=== PATIENT | male | born 1945 | race Hispanic/Latino ===

== ENCOUNTER 2022-08-25 16:07 | Emergency (ER) | payer OTHER ==
[~2022-08-25] VITALS: Ht 167.6 cm; Wt 80.3 kg
[2022-08-25] MEDS: KETOROLAC 15MG/ML VIAL (15MG/ML) IM ONE (17:08)
[2022-08-25] MEDS ORDERED: KETO10TA2 PO (17:10)
[2022-08-25 17:41] VITALS: BP 153/91
== END 2022-08-25 17:44 | disposition home or self-care (01) ==
LOC: EDH 16:07
DX: M54.41 Lumbago with sciatica, right side (principal); E78.00 Pure hypercholesterolemia, unspecified; I10 Essential (primary) hypertension; Z98.890 Other specified postprocedural states
CPT/HCPCS: 99283; 96372; J1885

== ENCOUNTER 2024-12-19 20:28 | Emergency (ER) | payer OTHER ==
[~2024-12-19] VITALS: Ht 167.6 cm; Wt 78.5 kg
[~2024-12-19 20:28] MED LIST: KETO10TA2 PO
[2024-12-19 20:30] VITALS: TEMP 98
--- NOTE | 2024-12-19 20:46 | EKG ---
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
[2024-12-19 21:10] LABS: BASOPHILS # (AUTO) 0.01 K/uL (0.00-0.20); BASOPHILS % (AUTO) 0.2 % (0.0-5.0); EOSINOPHILS # (AUTO) 0.08 K/uL (0.00-0.70); EOSINOPHILS % (AUTO) 1.5 % (0.0-8.0); HEMATOCRIT 43.1 % (42-54); IMMATURE GRANULOCYTE ABSOLUTE 0.02 K/uL (0-1); LYMPHOCYTES # (AUTO) 1.1 K/uL (1.0-4.8); LYMPHOCYTES % (AUTO) 21.2 % (21.0-51.0); MEAN CORPUSCULAR HEMOGLOBIN 26.7 pg (27.0-33.0); MEAN CORPUSCULAR HGB CONC 31.8 g/dL (32.0-36.0); MONOCYTES # (AUTO) 0.6 K/uL (0.1-1.0); MONOCYTES % (AUTO) 11.4 % (3.0-13.0); NEUTROPHILS # (AUTO) 3.4 K/uL (1.8-7.7); NEUTROPHILS % (AUTO) 65.3 % (40.0-77.0); PLATELET COUNT (AUTO) 211 K/uL (130-400); RED BLOOD CELL COUNT(AUTO) 5.13 MIL/uL (4.50-6.20); RED CELL DISTRIBUTION WIDTH 14.2 % (11.0-15.5); WHITE BLOOD COUNT (AUTO) 5.2 K/uL (4.8-10.8)
[2024-12-19 21:25] LABS: APPEARANCE,URINE CLEAR (CLEAR); BILIRUBIN,URINE NEGATIVE (NEGATIVE); COLOR,URINE LIGHT-YELLOW (YELLOW); GLUCOSE, URINE (UA) NEGATIVE (NEGATIVE); KETONES,URINE NEGATIVE (NEGATIVE); LEUKOCYTE ESTERASE ,URINE NEGATIVE Leu/uL (NEGATIVE); NITRATE,URINE NEGATIVE (NEGATIVE); PROTEIN,URINE NEGATIVE (NEGATIVE); UROBILINOGEN,URINE 0.2 mg/dL (0.2-1.0)
[2024-12-19 21:28] LABS: ADD UA MICROSCOPIC YES
[2024-12-19 21:39] LABS: MUCUS,URINE RARE LPF (None Seen); RBC,URINE 0-1 /HPF (0-1); WBC,URINE 0-1 /HPF (0-1)
--- NOTE | 2024-12-19 21:39 | HMCIMG ---
CHEST 1VW HISTORY: Chest pain COMPARISON: None FINDINGS: A frontal projection of the chest was obtained. No acute pulmonary infiltrates is seen. The heart is borderline enlarged. Degenerative changes are seen. Aortic calcifications are seen. IMPRESSION: 1. No acute pulmonary infiltrate is seen.
[2024-12-19 21:42] LABS: CREATININE 1.5 mg/dL (0.5-1.3); POTASSIUM 5.2 mmol/L (3.5-5.1)
[2024-12-19 21:45] LABS: B-TYPE NATRIURETIC PEPTIDE 52 pg/mL (0-100)
--- NOTE | 2024-12-19 21:47 | ERN ---
ED Note History of Present Illness Stated Complaint: DIZZYNESS, HEADACHE Chief Complaint: Neck Pain Time Seen by MD: 20:59 Dictation: This is a 79-year-old male who presented to the emergency room with complaints of left-sided neck pain headache and dizziness. All this started today. Patient is a very poor historian Temperature 98 pulse 68 respirations 20 initial blood pressure was 165/126 with a repeat 168/90 and pulse oximetry of 97% on room air Chronic medical problems include hypertension hypercholesterolemia and history of prostate surgery Allergies: Coded Allergies: No Known Drug Allergies (Unverified Allergy, Unknown, 08/25/22) Home Meds Active Scripts Ketorolac Tromethamine (Ketorolac Tromethamine) 10 Mg Tablet, 10 MG PO every 6 hours for pain for 4 Days, #16 TAB Prov:ADRIANA HANSEN [employer] 08/25/22 Past Medical History Past Medical History: High Cholesterol, Hypertension Surgical History: Other Surgical History Other: PROSTATE REMOVAL Family History: Negative Social History: Negative RN Note Reviewed/Agreed w/PFSH: Yes Review of System Dictation Constitutional: Negative for fever,chills, and weight loss Eyes: Negative for injury, pain,redness, and discharge ENT: Negative for injury,pain or swelling Cardiovascular: Negative for chest pain, palpitations, and edema Respiratory: Negative for shortness of breath, cough, and wheezing, Abdomen/GI: Negative for abdominal pain, nausea, vomiting, diarrhea, and constipation Back: Negative for injury and pain : Negative for injury, bleeding and discharge MS/Extremity: Negative for injury and deformity Skin: Negative for rash, and discoloration Neuro: Negative for headache, weakness, numbness, tingling, and seizure Psych: Negative for suicide ideation, homicidal ideation, and hallucinations Initial Vital Sign VS Vital Signs Date Time Temp Pulse Resp B/P (MAP) Pulse Ox O2 Delivery O2 Flow Rate FiO2 12/19/24 20:30 98.1 68 20 165/126 97 Room Air 12/19/24 20:53 0 21 Physical Exam Dictation General: awake, alert, NAD Head/Face: Normocephalic, atraumatic Eyes: PERRL, EOMI, vision at baseline ENT: oral cavity clear, TMs clear, no signs of infection Neck: Trachea midline, supple, no nuchal rigidity Cardiovascular: RRR, normal S1/S2, No MRGs, no JVD Respiratory: CTAB, no respiratory distress, No rales or wheezes Abdomen: Soft, non-tender, non-distended, normal bowel sounds, no guarding or rebound. Skin: Warm, dry, normal turgor, no rash MS/Extremity: Pulses equal, no cyanosis, neurovascular intact, FROM Neuro: COAx4, GCS 15, strength 5/5, CN 2-12 intact, normal cerebellar exam, normal gait, Psych: Normal behavior, mood, and affect normal Extremities-trace edema without any palpable cords, Homans sign is negative Results (Laboratory/Radiology) Laboratory/Radiology Laboratory Tests Test 12/19/24 21:00 12/19/24 21:05 12/19/24 21:23 White Blood Count 5.2 K/uL (4.8-10.8) Red Blood Count 5.13 MIL/uL (4.50-6.20) Hemoglobin 13.7 g/dL (14.0-18.0) L Hematocrit 43.1 % (42-54) Mean Corpuscular Volume 84.0 fL (79-99) Mean Corpuscular Hemoglobin 26.7 pg (27.0-33.0) L Mean Corpuscular Hemoglobin Concent 31.8 g/dL (32.0-36.0) L Red Cell Distribution Width 14.2 % (11.0-15.5) Platelet Count 211 K/uL (130-400) Mean Platelet Volume 10.2 fL (7.5-10.5) Immature Granulocyte % (Auto) 0.4 % (0-1) Neutrophils (%) (Auto) 65.3 % (40.0-77.0) Lymphocytes (%) (Auto) 21.2 % (21.0-51.0) Monocytes (%) (Auto) 11.4 % (3.0-13.0) Eosinophils (%) (Auto) 1.5 % (0.0-8.0) Basophils (%) (Auto) 0.2 % (0.0-5.0) Neutrophils # (Auto) 3.4 K/uL (1.8-7.7) Lymphocytes # (Auto) 1.1 K/uL (1.0-4.8) Monocytes # (Auto) 0.6 K/uL (0.1-1.0) Eosinophils # (Auto) 0.08 K/uL (0.00-0.70) Basophils # (Auto) 0.01 K/uL (0.00-0.20) Absolute Immature Granulocyte (auto 0.02 K/uL (0-1) Nucleated Red Blood Cells 0.0 % (0.0-0.19) Sodium Level 139 mmol/L (136-145) Potassium Level 5.2 mmol/L (3.5-5.1) H Chloride Level 106 mmol/L (101-111) Carbon Dioxide Level 30 mmol/L (21-32) Blood Urea Nitrogen 24 mg/dL (7-18) H Creatinine 1.5 mg/dL (0.5-1.3) H Glomerular Filtration Rate Calc 47 mL/min (>90) Random Glucose 104 mg/dL (70-105) Total Calcium 8.3 mg/dL (8.5-10.1) L Total Creatine Kinase 157 U/L (21-232) Troponin I High Sensitivity 13 ng/L (4-75) B-Type Natriuretic Peptide 52 pg/mL (0-100) Urine Color LIGHT-YELLOW (YELLOW) Urine Appearance CLEAR (CLEAR) Urine pH 5.0 (5.0-8.0) Urine Specific Eden 1.017 (1.001-1.031) Urine Protein NEGATIVE mg/dL (NEGATIVE) Urine Glucose (UA) NEGATIVE mg/dL (NEGATIVE) Urine Ketones NEGATIVE mg/dL (NEGATIVE) Urine Occult Blood +- (TRACE) (NEGATIVE) H Urine Nitrate NEGATIVE (NEGATIVE) Urine Bilirubin NEGATIVE mg/dL (NEGATIVE) Urine Urobilinogen 0.2 mg/dL (0.2-1.0) Urine Leukocyte Esterase NEGATIVE Braydon/uL Urine RBC 0-1 /HPF (0-1) Urine WBC 0-1 /HPF (0-1) Urine Bacteria None /HPF (None Seen) Troponin I < 0.05 ng/mL (0.00-0.05) Labs Reviewed?: Yes CT Scan Comment: PATIENT: OLIVIA BURGOS MR#: [id number] : 1945 SEX: M AGE: 79 LOCATION: ED ORDER 0003 STATUS: REG ER REPORT#: [id number] SERVICE 0000 REASON: severe neck pain ORDERING PHYSICIAN: KEITH NICHOLS MD PROCEDURE: C SPIN WO - CT CERVICAL SPINE W/O CONTRAST CT CERVICAL SPINE W/O CONTRAST HISTORY: Neck pain COMPARISON: None TECHNIQUE: Multiple sequential axial images of the cervical spine were obtained including post processing sagittal and coronal reconstruction images. Patient was not given contrast through intravenous route. FINDINGS: There are degenerative changes with cervical spine spondylosis. Disc space narrowings are seen at C5-6 and C6-7 levels. There is straightening of normal lordotic cervical curvature which may be related to muscle spasm or positioning. There is no loss of vertebral height. Evaluation for disc and cord pathology is limited with CT study. No evidence of fracture or dislocation is seen. IMPRESSION: 1. No fracture is seen. DJD. CT was performed with one or more following dose reduction techniques: automated exposure control, adjustment of the mA and kv according to patient's size, or use of a iterative reconstruction technique. DICTATED BY: COLE ENRIQUEZ MD DATE: 12/20/24 005 ELECTRONICALLY SIGNED BY: COLE ENRIQUEZ MD DATE: 12/20/24 010 ED Course ED Course Orders Procedure Category Date Status Time Vital Signs Per CPOE 12/19/24 Transmitted Routine 20:40 B-Type Natriuretic LAB 12/19/24 Complete Peptide 20:40 Chest 1vw RAD 12/19/24 Resulted 20:40 12 Lead Ekg Tracing- EKG 12/19/24 Complete Technical 20:40 Oxygen By Nc/Pulse Ox CPOE 12/19/24 Transmitted 20:40 Maintain Iv CPOE 12/19/24 Transmitted 20:40 Iv Insertion CPOE 12/19/24 Transmitted 20:40 Cardiac Monitoring CPOE 12/19/24 Transmitted 20:40 Pulse Oximetry With CPOE 12/19/24 Transmitted Vs And Prn 20:40 Cbc With Differential LAB 12/19/24 Complete 20:40 Activity: Br W/Brp CPOE 12/19/24 Transmitted With Assist 20:40 Creatine Kinase, Total LAB 12/19/24 Complete 20:40 Troponin I High LAB 12/19/24 Complete Sensitivity 20:40 Urinalysis Profile LAB 12/19/24 Complete 20:40 Troponin Poc Order LAB 12/19/24 Complete Only 20:40 Bedside Troponin-I LAB.ER 12/19/24 In Process (Poc) 20:40 Basic Metabolic Panel LAB 12/19/24 Complete 20:40 Acetaminophen 325 Tab PHA 12/19/24 Complete (Tylenol 325mg Tab 21:30 0.9% Nacl 500ml PHA 12/19/24 Complete Iv.Soln (Ns 500ml 22:00 Morphine 2mg Syg PHA 12/19/24 Complete (Morphine 2mg Syg) 22:00 Cyclobenzaprine Hcl PHA 12/19/24 Complete (Cyclobenzaprine Hcl 22:00 Ct Cervical Spine W/O CT 12/20/24 Resulted Contrast 00:00 Current Medications Medications (Trade) Dose Ordered Sig/Hcristina Route PRN Reason Start Time Stop Time Status Last Admin Dose Admin Acetaminophen (TYLenol 325MG TAB) 650 mg ONCE ONCE PO 12/19/24 21:30 12/19/24 21:31 DC 12/19/24 22:04 Cyclobenzaprine HCl (Cyclobenzaprine HCl) 5 mg ONCE ONCE PO 12/19/24 22:00 12/19/24 22:01 DC Morphine Sulfate (morPHINE 2MG SYG) 2 mg ONCE ONCE IVP 12/19/24 22:00 12/19/24 22:01 DC 12/19/24 23:26 Sodium Chloride 500 ml @ 0 mls/hr ONCE ONCE IV 12/19/24 22:00 12/19/24 22:01 DC 12/19/24 22:04 Vital Signs Date Time Temp Pulse Resp B/P (MAP) Pulse Ox O2 Delivery O2 Flow Rate FiO2 12/20/24 03:03 54 16 148/91 98 Room Air* 0 12/20/24 02:01 55 16 164/90 97 Room Air* 0 12/20/24 00:28 55 18 155/86 96 Room Air* 0 12/19/24 23:23 59 18 145/97 97 Room Air* 0 12/19/24 21:58 58 16 142/90 96 Room Air* 0 12/19/24 21:08 16 150/84 Room Air* 0 12/19/24 20:53 61 16 168/90 98 Room Air* 0 12/19/24 20:30 98.1 68 20 165/126 97 Room Air We will perform diagnostic labs, advanced imaging and administer medications according to the patient's complaint. Once the results are available, will review and personally interpreted the labs to rule out any acute life- threatening emergency the trach require immediate intervention and treatment. I will then re-evaluate the patient after treatment and diagnostic exams have return to determine whether the patient requires any further testing, can safely be discharged home or need further admission to hospital for additional treatment and evaluation. Labs reviewed CBC showed a white count of 5.2 hemoglobin 13.7. BNP 7 revealed a potassium of 5.2 bicarbonate of 30 BUN and creatinine are 24 and 1.5. Troponins are negative urinalysis is unremarkable. C-spine imaging studies are pending Cervical spine CT reviewed presence of muscle spasm as well as degenerative disc disease was noted. Patient responded very well to symptomatic treatment. Due to ER being over crowded and multiple emergencies, delay in imaging results and hence discharge. Medical Decision Making MDM MDM: Differential diagnosis: Cervical sprain, spondylosis, paraspinal muscle spasm, spinal stenosis Rationale: Tests considered and ordered secondary to shared decision making include: Previous outside records reviewed: Old ER visits. Risk of complication and/or morbidity or mortality of patient management: None Medications-Per medication reconciliation Need for hospitalization: Patient does not meet criteria for hospitalization. Need for emergency major/minor surgery: No There are no social concerns with this patient. Prescription drug management Prescriptions will include symptomatic care Patient's prior external medical records from other ER visits were reviewed by me as indicated. Prior testing and results from previous visits were reviewed. Prior tests were taken into account with medical decision making and resource utilization, independent historian/historians were used to obtain complete medical history. I independently interpreted the test that were performed, results were reviewed by me and considered findings on radiology if ordered. Medical management and examination interpretation discussions were had by me with other qualified healthcare professionals as indicated for the patient's care. Problem List Problem List: (1) Cervical spondylosis (2) Hypertensive urgency (3) Acute kidney injury (4) Dehydration DX & DISP Disposition: Discharge Departure Impression: Primary Impression: Cervical spondylosis Additional Impressions: Dehydration, Acute kidney injury, Hypertensive urgency Condition: Stable Scripts Cyclobenzaprine HCl (Cyclobenzaprine HCl) 5 Mg Tablet 1 TAB PO TIDP PRN for muscle spasms for 10 Days, #30 TAB 0 Refills Prov: KEITH NICHOLS MD 12/20/24 Additional Instructions: Patient and the caregiver have been informed of all the diagnostic tests and the imaging conducted during the today's visit to the emergency room and has verbalized understanding of the results I have personally reviewed and interpreted all diagnostic exams performed here in the ER today as well as the vital signs documented by the nursing staff. The patient is now being discharged to home and should follow up with the primary care physician or the specialist as directed by the ER staff. Follow-up with primary care provider in 1 to 2 days. Take medications as directed here in the emergency room. Okay to continue home medications unless otherwise discussed during your visit in the emergency room today. Return to your nearest emergency room if symptoms worsen or if there is no improvement. Call 911 if you need immediate assistance. Take Tylenol or Motrin [id number] as needed and if no contraindications are present. Increase oral hydration. A wound culture or urine culture was ordered here in the emergency room department please follow-up with primary care provider and advise them to get repeat ports from our facility. If you had any Navjot wrap/splints that were applied here, please do not remove them until you see your primary care or specialty. Referrals: JAZMÍN DEAL MD (PCP) KEITH NICHOLS MD Dec 19, 2024 21:47
[2024-12-19] MEDS: acetaMINOPHEN 325 MG TAB PO ONE (22:04)
[2024-12-19] MEDS: 0.9% NACL 500ML IV.SOLN 500 ML IV ONE (22:04)
[2024-12-19] MEDS: morPHINE 2 MG SYG IVP ONE (22:08)
[2024-12-19] MEDS: CYCLOBENZAPRINE HCL 10 MG TABLET PO ONE (22:08)
--- NOTE | 2024-12-20 00:14 | NUR ---
PATIENT TAKEN TO CT SCAN AT THIS TIME.
--- NOTE | 2024-12-20 00:24 | NUR ---
PATIENT STATES DID NOT BRING HOME MEDS.
--- NOTE | 2024-12-20 01:00 | HMCIMG ---
CT CERVICAL SPINE W/O CONTRAST HISTORY: Neck pain COMPARISON: None TECHNIQUE: Multiple sequential axial images of the cervical spine were obtained including post processing sagittal and coronal reconstruction images. Patient was not given contrast through intravenous route. FINDINGS: There are degenerative changes with cervical spine spondylosis. Disc space narrowings are seen at C5-6 and C6-7 levels. There is straightening of normal lordotic cervical curvature which may be related to muscle spasm or positioning. There is no loss of vertebral height. Evaluation for disc and cord pathology is limited with CT study. No evidence of fracture or dislocation is seen. IMPRESSION: 1. No fracture is seen. DJD. CT was performed with one or more following dose reduction techniques: automated exposure control, adjustment of the mA and kv according to patient's size, or use of a iterative reconstruction technique.
[2024-12-20 03:03] VITALS: BP 148/91; PULSE 54; RESP 16; O2SAT 98
[2024-12-20] MEDS ORDERED: CYCL5TAB3 PO (03:35)
== END 2024-12-20 03:49 | disposition home or self-care (01) ==
LOC: EDH 20:28
DX: M47.812 Spondylosis without myelopathy or radiculopathy, cervical region (principal); E86.0 Dehydration; N17.9 Acute kidney failure, unspecified; I16.0 Hypertensive urgency; E78.00 Pure hypercholesterolemia, unspecified; I10 Essential (primary) hypertension; Z79.899 Other long term (current) drug therapy; Z90.79 Acquired absence of other genital organ(s); Z98.890 Other specified postprocedural states
CPT/HCPCS: 99285; 96374; 71045; 96361; 82550; 84484 ×3; 80048; 83880; 85025; 81001; 36415 ×2; 93005; 72125; J7040; J2270